=== PATIENT | male | born 1990 | race African-American/Black ===

== ENCOUNTER 2020-03-19 22:23 | Emergency (ER) | payer MEDICAID ==
[~2020-03-19] VITALS: Ht 175.3 cm; Wt 67.7 kg
[2020-03-19 22:39] VITALS: BP 113/66; Ht 175.3 cm; Wt 67.7 kg
== END 2020-03-20 01:42 | disposition home or self-care (01) ==
LOC: D.ER 22:23
DX: R51 Headache (principal)

== ENCOUNTER 2020-09-27 13:06 | Emergency (ER) | payer MEDICAID ==
[~2020-09-27] VITALS: Ht 175.3 cm; Wt 64.5 kg
[2020-09-27 13:24] VITALS: BP 121/80; Ht 175.3 cm; Wt 64.5 kg
[2020-09-27 14:22] LABS: CALC OSMOLALITY 282 mosm/kg (275-300); CALCIUM 9.4 mg/dL (8.5-10.1); CARBON DIOXIDE 30.2 mmol/L (21.0-32.0); CHLORIDE - SERUM 102 mmol/L (98-107); GLUCOSE 101 mg/dL (74-106); POTASSIUM - SERUM 3.9 mmol/L (3.5-5.1); SODIUM 141 mmol/L (136-145); UREA NITROGEN 18 mg/dL (7-18); eGFR NON AFRICAN AMERICAN > 90 mL/min (90-120)
[2020-09-27 14:26] LABS: BASOPHILS 0.2 % (0-2); EOSINOPHILS 0.6 % (0-7); HEMATOCRIT 49.9 % (42.0-54.0); HEMOGLOBIN 17.1 g/dL (13.5-17.5); IMMATURE GRANULOCYTES 0.7 % (0-5); LYMPHOCYTE ABS# 3.29 10x3/uL (1.32-3.57); LYMPHOCYTES 36.4 % (15-50); MCHC 34.3 g/dL (31.0-37.0); MCV 87.5 fL (80.0-100.0); MEAN PLATELET VOLUME 9.7 fL (7.4-10.4); MONOCYTES 6.5 % (2-11); NEUTROPHIL ABS# 5.04 10x3/uL (1.78-5.38); NEUTROPHILS 55.6 % (40-80); PLATELET COUNT 245 10x3/uL (130-400); WBC 9.1 10x3/uL (4.8-10.8)
[2020-09-27 14:28] LABS: ALBUMIN 4.3 g/dL (3.4-5.0); ALKALINE PHOSPHATASE 82 U/L (30-120); ALT (SGPT) 28 U/L (10-68); BILIRUBIN - TOTAL 1.45 mg/dL (0.2-1.3)
[2020-09-27] MEDS ORDERED: NAPROSYN500 MG PO (15:31)
== END 2020-09-27 15:51 | disposition home or self-care (01) ==
LOC: D.ER 13:06
PROVIDERS: Emergency Medicine
DX: R51.9 Headache, unspecified (principal)